=== PATIENT | male | born 1965 | race Two or more races ===

== ENCOUNTER 2016-03-09 03:07 | Emergency (ER) | payer MEDICARE, OTHER ==
[~2016-03-09] VITALS: Ht 185.4 cm; Wt 66.7 kg
[~2016-03-09 03:07] MED LIST: CLIN-63 PO; Divalproex Sodium PO; FURO40TA5 PO; HYDR-3326 PO; PANT40TA2 PO
[2016-03-09] MEDS ORDERED: ACETAMINOPHEN 325 MG TABLET ONE (04:07)
[2016-03-09] MEDS ORDERED: ACETAMINOPHEN 325 MG TABLET PO ONE (04:30)
[2016-03-09 04:32] VITALS: BP 135/100
== END 2016-03-09 04:48 | disposition home or self-care (01) ==
LOC: ER 03:08
DX: G89.29 Other chronic pain (principal); M25.562 Pain in left knee; M25.561 Pain in right knee; I10 Essential (primary) hypertension
CPT/HCPCS: 82962; 99283; A4606; Z7610

== ENCOUNTER 2018-09-17 12:54 | Emergency (ER) | payer MEDICARE, MEDICAID ==
[~2018-09-17] VITALS: Ht 182.9 cm; Wt 92.1 kg
[~2018-09-17 12:54] MED LIST changes: -CLIN-63 PO; +CLIN150C15 PO; -HYDR-3326 PO; +HYDR-3974 PO
--- NOTE | 2018-09-17 13:08 | NUR ---
"BLE swelling x6days was seen in [facility] and discharged yesterday they arranged correction but I couldnt find it" STATES LEG PAIN IS 6/10. NO OTHER COMPLAINTS AT THIS TIME. NEEDS [facility] PLACEMENT. ER 12, MADE COMFORTABLE AND READY FOR EVAL.
--- NOTE | 2018-09-17 13:10 | NUR ---
DR GARZA AT BEDSIDE FOR EVAL
--- NOTE | 2018-09-17 13:46 | NUR ---
CALLED [facility]
--- NOTE | 2018-09-17 15:07 | NUR ---
Patient is resting comfortably in bed with eyes closed. Easily aroused. VSS
--- NOTE | 2018-09-17 17:00 | NUR ---
Susana lowery in ED - 09/17/[address] Patient discharged to home in stable condition. Written and verbal after care instructions given. Patient verbalizes understanding of instruction.
--- NOTE | 2018-09-17 17:06 | NUR ---
Patient given written and verbal discharge instructions. Patient verbalizes understanding of instructions. Patient is ambulatory with steady gait. Refuses offer of senior living placement. Patient given list of available shelters in surrounding area.
[2018-09-17 17:07] VITALS: BP 118/62
== END 2018-09-17 17:08 | disposition home or self-care (01) ==
LOC: ER 12:56
DX: L03.115 Cellulitis of right lower limb (principal); I10 Essential (primary) hypertension; Z59.0 Homelessness; Z98.890 Other specified postprocedural states; Z79.899 Other long term (current) drug therapy